=== PATIENT | male | born 1985 ===

== ENCOUNTER 2017-08-04 17:11 | Observation (INO) | payer BC, OTHER ==
--- NOTE | 2017-08-04 18:23 | ED PDOC ---
HPI: Chest Pain Time Seen by Provider: 08/04/17 17:46 Chief Complaint (Nursing): Chest Pain Chief Complaint (Provider): CP History Per: Patient History/Exam Limitations: no limitations Additional Complaint(s): Pt sent by PMD for chest pain. Pt reports L sided CP X 3 weeks, intermittent, associated with dizziness and bilateral arm numbness, no focal weakness. Denies fever, palpitations, SOB. Past Medical History Reviewed: Nursing Documentation, Vital Signs Vital Signs: Last Vital Signs Temp 98.3 F 08/04/17 17:17 Pulse 70 08/04/17 18:14 Resp 20 08/04/17 17:17 BP 115/77 08/04/17 17:17 Pulse Ox 98 08/04/17 19:19 - Medical History PMH: Diabetes, Gall Bladder Disease Denies: HIV, Chronic Kidney Disease - Surgical History Surgical History: Appendectomy, Pacemaker, Tonsillectomy - Family History Family History: States: CAD, Hypertension - Living Arrangements Living Arrangements: With Family - Social History Current smoker - smoking cessation education provided: No Alcohol: None - Home Medications Home Medications: Ambulatory Orders Medication Instructions Recorded Dexlansoprazole [Dexilant] 60 mg PO DAILY 06/22/16 Ergocalciferol (Vitamin D2) 50,000 unit PO QWK 06/22/16 [Vitamin D2] Levothyroxine [Synthroid] 50 mcg PO DAILY 06/22/16 [id number] Ethyl Esters 1 GM 2 gm PO BID 06/22/16 [Lovaza] metFORMIN [glucOPHAGE] 500 mg PO TID 06/22/16 - Allergies Allergies/Adverse Reactions: Allergies Allergy/AdvReac Type Severity Reaction Status Date / Time No Known Allergies Allergy Verified 06/22/16 17:25 KAUSHAL Risk Score for UA/NSTEMI - KAUSHAL Risk Score Age > 64: NO 3 or more CAD Risk Factors: NO Known CAD (Stenosis greater than 50%): NO Aspirin use in past 7 days: NO Severe Angina: NO EKG ST changes greater than 0.5mm: NO Positive Cardiac Marker: NO KAUSHAL Score: 0 Risk %: 5% Review of Systems Constitutional: Negative for: Fever, Chills, Weakness, Malaise Cardiovascular: Positive for: Chest Pain. Negative for: Palpitations Respiratory: Negative for: Cough, Shortness of Breath Gastrointestinal: Negative for: Nausea, Vomiting, Abdominal Pain, Diarrhea Genitourinary Male: Negative for: Dysuria, Hematuria Musculoskeletal: Negative for: Back Pain Skin: Negative for: Rash, Lesions Neurological: Positive for: Numbness (Bilateral UE), Dizziness. Negative for: Confusion, Seizures, Altered Mental Status, Headache Physical Exam - Reviewed Nursing Documentation Reviewed: Yes Vital Signs Reviewed: Yes - Physical Exam Appears: Positive for: Well, No Acute Distress Head Exam: Positive for: ATRAUMATIC, NORMAL INSPECTION Skin: Positive for: Normal Color, Warm, Dry Eye Exam: Positive for: Normal appearance, EOMI, PERRL Cardiovascular/Chest: Positive for: Regular Rate, Rhythm. Negative for: Chest Non Tender (TTP around pacemaker site) Respiratory: Positive for: Normal Breath Sounds. Negative for: Rales, Rhonchi, Wheezing Gastrointestinal/Abdominal: Positive for: Normal Exam, Bowel Sounds, Soft. 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 Negative for: Motor/Sensory Deficits, Aphasia, Facial Droop - Laboratory Results Result Diagrams: 08/04/17 18:30 08/04/17 16:30 - ECG O2 Sat by Pulse Oximetry: 98 Pulse Ox Interpretation: Normal - Radiology X-Ray: Interpreted by Ct X-Ray Interpretation: No Acute Disease Medical Decision Making Medical Decision Makin yo male with CP and dizziness. - labs - EKG - CXR - CT head [address] FINDINGS: HEMORRHAGE: No intracranial hemorrhage. BRAIN: No mass effect or edema. Mild volume loss is noted. VENTRICLES: Unremarkable. No hydrocephalus. CALVARIUM: Unremarkable. PARANASAL SINUSES: Unremarkable as visualized. No significant inflammatory changes. MASTOID AIR CELLS: Unremarkable as visualized. No inflammatory changes. OTHER FINDINGS: None. IMPRESSION: No evidence of acute intracranial hemorrhage intracranial collection mass effect or midline shift. Mild volume loss is again noted. Disposition - Disposition Condition: STABLE Forms: [employer] ([place]ian)
[2017-08-04 18:41] LABS: BASO # 0.1 K/uL (0.0-0.2); EOS # 0.3 K/uL (0.0-0.7); EOS % 4.7 % (0.0-4.0); HEMOGLOBIN 14.5 g/dL (12.0-18.0); LYMPH # 2.2 K/uL (1.0-4.3); LYMPH % 29.6 % (20.0-40.0); MEAN CELL VOLUME 89.9 fl (80.0-94.0); MEAN CORPUSCULAR HEMOGLOBIN 29.8 pg (27.0-31.0); MEAN CORPUSCULAR HGB CONC 33.1 g/dL (33.0-37.0); MEAN PLATELET VOLUME 8.7 fl (7.2-11.7); MONO # 0.5 K/uL (0.0-0.8); MONO % 7.3 % (0.0-10.0); NEUT # 4.2 K/uL (1.8-7.0); NEUT % 57.4 % (50.0-75.0); NRBC % 0.1 % (0.0-0.0); RBC 4.86 Mil/uL (4.40-5.90); RED CELL DISTRIBUTION WIDTH 13.6 % (11.5-14.5); WHITE BLOOD COUNT 7.4 K/uL (4.8-10.8)
[2017-08-04 18:48] LABS: PARTIAL THROMBOPLASTIN TIME 34.8 Seconds (25.6-37.1); PROTHROMBIN TIME 10.7 Seconds (9.8-13.1)
[2017-08-04 18:59] LABS: ALB/GLOB RATIO 1.2 (1.0-2.1); ALBUMIN 4.1 g/dL (3.5-5.0); ALT/SGPT 67 U/L (21-72); AST/SGOT 34 U/L (17-59); BLOOD UREA NITROGEN 14 mg/dl (9-20); CALCIUM 9.8 mg/dL (8.4-10.2); GFR AFRICAN-AMERICAN > 60; GFR NON-AFRICAN AMERICAN > 60
--- NOTE | 2017-08-04 19:08 | CT ---
PROCEDURE: CT HEAD WITHOUT CONTRAST. HISTORY: Dizziness COMPARISON: Comparison is made to 06/22/2016 TECHNIQUE: Axial computed tomography images were obtained through the head/brain without intravenous contrast. Radiation dose: Total exam DLP = 781.25 mGy-cm. This CT exam was performed using one or more of the following dose reduction techniques: Automated exposure control, adjustment of the mA and/or kV according to patient size, and/or use of iterative reconstruction technique. FINDINGS: HEMORRHAGE: No intracranial hemorrhage. BRAIN: No mass effect or edema. Mild volume loss is noted. VENTRICLES: Unremarkable. No hydrocephalus. CALVARIUM: Unremarkable. PARANASAL SINUSES: Unremarkable as visualized. No significant inflammatory changes. MASTOID AIR CELLS: Unremarkable as visualized. No inflammatory changes. OTHER FINDINGS: None. IMPRESSION: No evidence of acute intracranial hemorrhage intracranial collection mass effect or midline shift. Mild volume loss is again noted.
[2017-08-04 20:12] LABS: URINE BILIRUBIN NEGATIVE (NEGATIVE); URINE BLOOD NEGATIVE (NEGATIVE); URINE CLARITY SLIGHTY-CLOUDY (Clear); URINE COLOR YELLOW (YELLOW); URINE GLUCOSE (UA) NEG (Normal); URINE LEUKOCYTE ESTERASE NEG Leu/uL (Negative); URINE PROTEIN NEGATIVE (NEGATIVE); URINE UROBILINOGEN 0.2-1.0 mg/dL (0.2-1.0)
[2017-08-05] MEDS ORDERED: Enoxaparin 40 mg Syringe SC SCH (09:00)
[2017-08-05] MEDS ORDERED: Levothyroxine 50 MCG TAB PO SCH (09:00)
--- NOTE | 2017-08-05 09:56 | CARD ---
APPROVED REPORT EKG Measurement Heart [id number] <Conclusion> Atrial-paced rhythm with prolonged AV conduction Abnormal ECG
--- NOTE | 2017-08-05 11:22 | RAD ---
HISTORY: CP COMPARISON: Frontal chest radiograph 06/22/2016. FINDINGS: LUNGS: No active pulmonary disease. PLEURA: No significant pleural effusion identified, no pneumothorax apparent. CARDIOVASCULAR: An interval permanent bipolar cardiac pacer is in place by an apparent left subclavian approach with the generator the left pectoralis region and 2 leads identified extending into the heart region. OSSEOUS STRUCTURES: No significant abnormalities. VISUALIZED UPPER ABDOMEN: Normal. OTHER FINDINGS: None. IMPRESSION: Interval permanent cardiac pacemaker in position without pneumothorax, infiltrate or pleural effusion bilaterally. No pulmonary vascular derangement.
--- NOTE | 2017-08-05 13:06 | CP.PCM.HP ---
History of Present Illness - History of Present Illness History of Present Illness: Patient presented with hx of chest pain. the location of the pain is precordial with no irradiation, sharp, with severe intensity sudden onset. Patient denies any diaphoresis, nausea, vomiting, dyspnea. He complain fatigue and general malaise. He has hx of bradycardia symptomatic and pacemaker placement. Has hx of gynecomastioa., HNT. Present on Admission - Present on Admission Any Indicators Present on Admission: No Review of Systems - Constitutional Constitutional: Fatigue, Malaise - EENT Eyes: As Per HPI - Cardiovascular Cardiovascular: Chest Pain at Rest, Chest Pain with Activity - Respiratory Respiratory: As Per HPI - Gastrointestinal Gastrointestinal: As Per HPI - Musculoskeletal Musculoskeletal: As Per HPI - Integumentary Integumentary: As Per HPI - Neurological Neurological: As Per HPI - Psychiatric Psychiatric: As Per HPI - Endocrine Additional Comments: gynecomastia Past Patient History - Past Medical History & Family History Past Medical History?: Yes - Past Social History Smoking Status: Former Smoker - CARDIAC Hx Pacemaker: Yes (bradycardia) - PULMONARY Hx Respiratory Disorders: No - NEUROLOGICAL Hx Neurological Disorder: Yes Other/Comment: arnold chiari malformation - HEENT Hx HEENT Problems: No - RENAL Hx Chronic Kidney Disease: No - ENDOCRINE/METABOLIC Hx Diabetes Mellitus Type 2: Yes Hx Hyperthyroidism: Yes - HEMATOLOGICAL/ONCOLOGICAL Hx AIDS: No Hx Human Immunodeficiency Virus (HIV): No - INTEGUMENTARY Hx Dermatological Problems: No - MUSCULOSKELETAL/RHEUMATOLOGICAL Hx Falls: No - GASTROINTESTINAL Hx Gall Bladder Disease: Yes - GENITOURINARY/GYNECOLOGICAL Hx Genitourinary Disorders: No - PSYCHIATRIC Hx Substance Use: No - SURGICAL HISTORY Hx Appendectomy: Yes Hx Tonsillectomy: Yes - ANESTHESIA Hx Anesthesia: Yes Hx Anesthesia Reactions: No Hx Malignant Hyperthermia: No Meds Home Medications: Home Medication List Medication Instructions Recorded Confirmed Type Enoxaparin [Lovenox] 40 mg SC DAILY syr 08/05/17 Rx Allergies/Adverse Reactions: Allergies Allergy/AdvReac Type Severity Reaction Status Date / Time No Known Allergies Allergy Verified 06/22/16 17:25 Physical Exam - Constitutional Appears: No Acute Distress - Head Exam Head Exam: ATRAUMATIC, NORMAL INSPECTION, NORMOCEPHALIC - Eye Exam Eye Exam: Normal appearance - ENT Exam ENT Exam: Mucous Membranes Moist - Neck Exam Neck exam: Positive for: Full Rom - Respiratory Exam Respiratory Exam: Clear to Auscultation Bilateral - Cardiovascular Exam Cardiovascular Exam: REGULAR RHYTHM, +S1, +S2 - GI/Abdominal Exam GI & Abdominal Exam: Normal Bowel Sounds - Extremities Exam Extremities exam: Positive for: normal inspection - Neurological Exam Neurological exam: Alert, CN II-XII Intact, Oriented x3, Reflexes Normal - Psychiatric Exam Psychiatric exam: Normal Affect - Skin Skin Exam: Normal Color Results - Vital Signs Recent Vital Signs: Last Vital Signs Temp 98.4 F 08/05/17 12:15 Pulse 70 08/05/17 12:15 Resp 18 08/05/17 12:15 BP 100/62 08/05/17 12:15 Pulse Ox 99 08/05/17 12:15 - Labs Result Diagrams: 08/04/17 18:30 08/04/17 16:30 Labs: Laboratory Results - last 24 hr 08/04/17 08/04/17 08/04/17 16:30 16:30 18:30 WBC 7.4 RBC 4.86 Hgb 14.5 Hct 43.7 MCV 89.9 MCH 29.8 MCHC 33.1 RDW 13.6 Plt Count 205 MPV 8.7 Neut % (Auto) 57.4 Lymph % (Auto) 29.6 Shelby % (Auto) 7.3 Eos % (Auto) 4.7 H Baso % (Auto) 1.0 Neut # (Auto) 4.2 Lymph # (Auto) 2.2 Shelby # (Auto) 0.5 Eos # (Auto) 0.3 Baso # (Auto) 0.1 PT 10.7 INR 1.0 APTT 34.8 Sodium 141 Potassium 3.9 Chloride 103 Carbon Dioxide 26 Anion Gap 16 BUN 14 Creatinine 0.8 Est GFR ( Amer) > 60 Est GFR (Non-Af Amer) > 60 POC Glucose (mg/dL) Random Glucose 94 Calcium 9.8 Total Bilirubin 0.5 AST 34 ALT 67 Alkaline Phosphatase 67 Troponin I < 0.0120 Total Protein 7.6 Albumin 4.1 Globulin 3.4 Albumin/Globulin Ratio 1.2 Free T4 TSH 3rd Generation Urine Color Urine Clarity Urine pH Ur Specific [place] Urine Protein Urine Glucose (UA) Urine Ketones Urine Blood Urine Nitrate Urine Bilirubin Urine Urobilinogen Ur Leukocyte Esterase Urine RBC (Auto) Urine Microscopic WBC 04/25/18 04/25/18 04/26/18 19:40 22:24 09:05 WBC RBC Hgb Hct MCV MCH MCHC RDW Plt Count MPV Neut % (Auto) Lymph % (Auto) Shelby % (Auto) Eos % (Auto) Baso % (Auto) Neut # (Auto) Lymph # (Auto) Shelby # (Auto) Eos # (Auto) Baso # (Auto) PT INR APTT Sodium Potassium Chloride Carbon Dioxide Anion Gap BUN Creatinine Est GFR ( Amer) Est GFR (Non-Af Amer) POC Glucose (mg/dL) 105 Random Glucose Calcium Total Bilirubin AST ALT Alkaline Phosphatase Troponin I < 0.0120 Total Protein Albumin Globulin Albumin/Globulin Ratio Free T4 TSH 3rd Generation 1.54 Urine Color Yellow Urine Clarity Slighty-cloudy Urine pH 6.0 Ur Specific [place] 1.017 Urine Protein Negative Urine Glucose (UA) Neg Urine Ketones Negative Urine Blood Negative Urine Nitrate Negative Urine Bilirubin Negative Urine Urobilinogen 0.2-1.0 Ur Leukocyte Esterase Neg Urine RBC (Auto) 2 Urine Microscopic WBC 1 08/05/17 12:00 WBC RBC Hgb Hct MCV MCH MCHC RDW Plt Count MPV Neut % (Auto) Lymph % (Auto) Shelby % (Auto) Eos % (Auto) Baso % (Auto) Neut # (Auto) Lymph # (Auto) Shelby # (Auto) Eos # (Auto) Baso # (Auto) PT INR APTT Sodium Potassium Chloride Carbon Dioxide Anion Gap BUN Creatinine Est GFR ( Amer) Est GFR (Non-Af Amer) POC Glucose (mg/dL) Random Glucose Calcium Total Bilirubin AST ALT Alkaline Phosphatase Troponin I Total Protein Albumin Globulin Albumin/Globulin Ratio Free T4 1.10 TSH 3rd Generation Urine Color Urine Clarity Urine pH Ur Specific [place] Urine Protein Urine Glucose (UA) Urine Ketones Urine Blood Urine Nitrate Urine Bilirubin Urine Urobilinogen Ur Leukocyte Esterase Urine RBC (Auto) Urine Microscopic WBC Assessment & Plan (1) Chest pain Status: Acute (2) Budd-Chiari syndrome Status: Chronic (3) Gynecomastia Status: Chronic (4) Hypothyroid Status: Chronic (5) Status post cardiac pacemaker procedure Status: Chronic (6) Bradyarrhythmia Status: Chronic - Assessment and Plan (Free Text) Plan: EKG ECHO CXR Troponin Cardiac consult Prolactin Beta human chorionic gonadortopin (in male detected in testicular tumor or other malignancies) LH Testosterone TSH FT4 Will follow if cardiac w/u is negative will dc home and will follow as OP.
[2017-08-05 13:09] LABS: ALB/GLOB RATIO 1.2 (1.0-2.1); ALT/SGPT 62 U/L (21-72); AST/SGOT 40 U/L (17-59); BILIRUBIN,DIRECT 0.3 mg/ml (0.0-0.4)
--- NOTE | 2017-08-05 19:20 | CARD ---
APPROVED REPORT EXAM: Two-dimensional and M-mode echocardiogram with Doppler and color Doppler. Other Information Quality : GoodRhythm : NSR INDICATION Chest Pain 2D DIMENSIONS IVSd1.09 (0.7-1.1cm)LVDd4.72 (3.9-5.9cm) LVOT Diameter2.30 (1.8-2.4cm)PWd0.85 (0.7-1.1cm) IVSs1.25 (0.8-1.2cm)LVDs3.02 (2.5-4.0cm) FS (%) 36.0 %PWs1.16 (0.8-1.2cm) M-Mode DIMENSIONS Left Atrium (MM)3.39 (2.5-4.0cm)IVSd1.21 (0.7-1.1cm) Aortic Root2.95 (2.2-3.7cm)LVDd5.24 (4.0-5.6cm) Aortic Cusp Exc.1.90 (1.5-2.0cm)PWd1.13 (0.7-1.1cm) IVSs1.76 cmFS (%) 38 % LVDs3.23 (2.0-3.8cm)PWs1.49 cm Mitral Valve MV E Tqopgcne24.2cm/sMV DECEL [id number] A Bqndmwua05.1cm/s MV [id number]/A ratio1.6MVA (PHT)2.95cm2 TDI Lateral E' Peak V16.21cm/sMedial E' Peak V9.53cm/sE/Lateral E'3.6 E/Medial E'6.1 Pulmonary Valve PV Peak Envfkmgb16.1cm/s LEFT VENTRICLE The left ventricle is normal in size. There is normal left ventricular wall thickness. The left ventricular function is normal. The left ventricular ejection fraction is - 65%. There is normal LV segmental wall motion. The left ventricular diastolic function is normal. No left ventricle thrombus noted on this study. There is no ventricular septal defect visualized. There is no left ventricular aneurysm. There is no mass noted in the left ventricle. RIGHT VENTRICLE The right ventricle appears at least mildly enlarged in some 2D views. There is normal right ventricular wall thickness. The right ventricular systolic function is normal. ATRIA The left atrium size is normal. There is no thrombus suspected in the left atrium. The right atrium size is normal. The interatrial septum is intact with no evidence for an atrial septal defect. AORTIC VALVE The aortic valve is normal in structure. No aortic regurgitation is present. There is no aortic valvular stenosis. MITRAL VALVE The mitral valve is normal in structure. There is no evidence of mitral valve prolapse. There is no mitral valve stenosis. Mitral regurgitation is trace to mild. TRICUSPID VALVE The tricuspid valve is normal in structure. There is no tricuspid valve regurgitation noted. There is no tricuspid valve prolapse or vegetation. There is no tricuspid valve stenosis. PULMONIC VALVE The pulmonic valve is not well visualized. There is no pulmonic valvular regurgitation. GREAT VESSELS The aortic root is normal in size. The IVC is normal in size and collapses >50% with inspiration. PERICARDIAL EFFUSION The pericardium appears normal. There is no pleural effusion. <Conclusion> The left ventricle is normal in size and wall thickness. The left ventricular function is normal. The left ventricular ejection fraction is - 65%. The left atrium and right atrium are normal in size. The right ventricle appears at least mildly enlarged on some 2D views. The mitral, aortic and tricuspid valves are normal. There is trace to mild mitral regurgitation.
[2017-08-05 19:48] VITALS: PULSE 73; RESP 17; TEMP 98.5; O2SAT 99
[2017-08-05 21:13] LABS: PROLACTIN 13.2 ng/mL (3.7-17.9)
--- NOTE | 2017-08-05 21:18 | CP.PCM.CON ---
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 Review of Systems - Review of Systems All systems: reviewed and no additional remarkable complaints except - Constitutional Constitutional: As Per HPI - EENT Eyes: As Per HPI Ears: As Per HPI Nose/Mouth/Throat: As Per HPI - Cardiovascular Cardiovascular: As Per HPI - Respiratory Respiratory: As Per HPI - Gastrointestinal Gastrointestinal: As Per HPI - Genitourinary Genitourinary: As Per HPI - Reproductive: Male Reproductive:Male: As Per HPI - Musculoskeletal Musculoskeletal: As Per HPI - Integumentary Integumentary: As Per HPI - Neurological Neurological: As Per HPI - Psychiatric Psychiatric: As Per HPI - Endocrine Endocrine: As Per HPI - Hematologic/Lymphatic Hematologic: As Per HPI Past Patient History - Past Medical History & Family History Past Medical History?: Yes - Past Social History Smoking Status: Former Smoker - CARDIAC Hx Pacemaker: Yes (bradycardia) - PULMONARY Hx Respiratory Disorders: No - NEUROLOGICAL Hx Neurological Disorder: Yes Other/Comment: arnold chiari malformation - HEENT Hx HEENT Problems: No - RENAL Hx Chronic Kidney Disease: No - ENDOCRINE/METABOLIC Hx Diabetes Mellitus Type 2: Yes Hx Hyperthyroidism: Yes - HEMATOLOGICAL/ONCOLOGICAL Hx AIDS: No Hx Human Immunodeficiency Virus (HIV): No - INTEGUMENTARY Hx Dermatological Problems: No - MUSCULOSKELETAL/RHEUMATOLOGICAL Hx Falls: No - GASTROINTESTINAL Hx Gall Bladder Disease: Yes - GENITOURINARY/GYNECOLOGICAL Hx Genitourinary Disorders: No - PSYCHIATRIC Hx Substance Use: No - SURGICAL HISTORY Hx Appendectomy: Yes Hx Tonsillectomy: Yes - ANESTHESIA Hx Anesthesia: Yes Hx Anesthesia Reactions: No Hx Malignant Hyperthermia: No Meds Home Medications: Home Medication List Medication Instructions Recorded Confirmed Type Enoxaparin [Lovenox] 40 mg SC DAILY syr 08/05/17 Rx Allergies/Adverse Reactions: Allergies Allergy/AdvReac Type Severity Reaction Status Date / Time No Known Allergies Allergy Verified 06/22/16 17:25 - Medications Medications: Current Medications Enoxaparin Sodium (Lovenox) 40 mg SC DAILY [facility] PRN Reason: Protocol Last Admin: 08/05/17 12:09 Dose: 40 mg Levothyroxine Sodium (Synthroid) 50 mcg PO ACB [facility] Last Admin: 08/05/17 09:28 Dose: 50 mcg Metformin HCl (Glucophage) 500 mg PO BIDWM [facility] Last Admin: 08/05/17 16:46 Dose: 500 mg Physical Exam - Constitutional Appears: Well - Head Exam Head Exam: ATRAUMATIC, NORMAL INSPECTION, NORMOCEPHALIC - Eye Exam Eye Exam: EOMI, Normal appearance, PERRL Pupil Exam: NORMAL ACCOMODATION, PERRL - ENT Exam ENT Exam: Mucous Membranes Moist, Normal Exam - Neck Exam Neck exam: Positive for: Normal Inspection - Respiratory Exam Respiratory Exam: Clear to Auscultation Bilateral, NORMAL BREATHING PATTERN - Cardiovascular Exam Cardiovascular Exam: REGULAR RHYTHM, +S1, +S2, Systolic Murmur - GI/Abdominal Exam GI & Abdominal Exam: Normal Bowel Sounds, Soft. absent: Tenderness - Extremities Exam Extremities exam: Positive for: normal inspection - Back Exam Back exam: NORMAL INSPECTION - Neurological Exam Neurological exam: Alert, CN II-XII Intact, Normal Gait, Oriented x3, Reflexes Normal - Psychiatric Exam Psychiatric exam: Normal Affect, Normal Mood - Skin Skin Exam: Dry, Intact, Normal Color, Warm Results - Vital Signs Recent Vital Signs: Last Vital Signs Temp 98.5 F 08/05/17 19:47 Pulse 73 08/05/17 19:47 Resp 17 08/05/17 19:47 BP 95/55 L 08/05/17 19:47 Pulse Ox 99 08/05/17 19:47 - Labs Result Diagrams: 08/04/17 18:30 08/04/17 16:30 Labs: Laboratory Results - last 24 hr 08/04/17 08/05/17 08/05/17 22:24 09:05 11:39 POC Glucose (mg/dL) 105 Total Bilirubin 0.5 Direct Bilirubin 0.3 AST 40 ALT 62 Alkaline Phosphatase 61 Troponin I < 0.0120 Total Protein 7.2 Albumin 4.0 Globulin 3.3 Albumin/Globulin Ratio 1.2 Free T4 TSH 3rd Generation 1.54 Luteinizing Hormone 2.9 Prolactin 13.2 Beta HCG, Quant < 2.39 Cortisol AM Sample 08/05/17 08/05/17 08/05/17 11:39 12:00 16:00 POC Glucose (mg/dL) Total Bilirubin Direct Bilirubin AST ALT Alkaline Phosphatase Troponin I < 0.0120 Total Protein Albumin Globulin Albumin/Globulin Ratio Free T4 1.10 TSH 3rd Generation Luteinizing Hormone Prolactin Beta HCG, Quant Cortisol AM Sample 8.0 Assessment & Plan (1) Chest pain Assessment and Plan: atypical etiology ? PMT will need outpt PM interogation evaluation of lead impedance Status: Acute (2) Arnold-Chiari malformation Status: Acute (3) Status post cardiac pacemaker procedure Status: Chronic (4) Dizziness Assessment and Plan: outpt sleep studies Status: Acute
[2017-08-05 21:30] LABS: TESTOSTERONE 259 ng/mL
[2017-08-05 22:44] VITALS: BP 105/62
== END 2017-08-05 22:03 | disposition home or self-care (01) ==
LOC: H.ER 17:11 → H.ERHOLD 19:31 → H.TEL 22:35
PROVIDERS: ADMIT Internal Medicine; ATTEND Internal Medicine
DX: R07.9 Chest pain, unspecified (principal); N62 Hypertrophy of breast; E03.9 Hypothyroidism, unspecified; Z95.0 Presence of cardiac pacemaker; Z87.820 Personal history of traumatic brain injury; Z87.891 Personal history of nicotine dependence; Q07.00 Arnold-Chiari syndrome without spina bifida or hydrocephalus; R42 Dizziness and giddiness; E11.9 Type 2 diabetes mellitus without complications
CPT/HCPCS: 36415; 70450; 71045; 80053; 80076; 81003; 82024; 82533; 82948; 83002; 84146; 84403; 84439; 84443; 84484; 84702; 85025; 85610; 85730; 93005; 93306; 96372; 99285; G0378; J1650